=== PATIENT | female | born 1970 | race African-American/Black ===

== ENCOUNTER 2025-09-01 09:50 | Outpatient (CLI) | payer OTHER | END 2025-09-01 09:51 | disposition home or self-care (01) | LOC: BICRAD 09:50 | PROVIDERS: ATTEND Family Medicine | DX: H40.9 Unspecified glaucoma (principal); S99 Other and unspecified injuries of ankle and foot; E66.9 Obesity, unspecified; H52.10 Myopia, unspecified eye; R52 Pain, unspecified; Y92.148 Other place in prison as the place of occurrence of the external cause ==